=== PATIENT | male | born 1950 | race Caucasian/White ===

== ENCOUNTER → 2024-04-07 09:54 | Outpatient (REF) | payer MEDICARE, OTHER, SELFPAY | LOC: RCS 09:54 | PROVIDERS: ATTENDING PHYSICIAN Internal Medicine; FAMILY PHYSICIAN Student in an Organized Health Care Education/Training Program | DX: I34.1 Nonrheumatic mitral (valve) prolapse (principal) | CPT/HCPCS: 93306 ==

== ENCOUNTER 2024-06-11 21:12 | Emergency (ER) | payer MEDICARE, OTHER, SELFPAY ==
[2024-06-11 21:22] VITALS: BP 124/96
--- NOTE | 2024-06-11 22:05 | ED.MUSCINJ ---
HPI-Injury
<MARVIN العلي (Lenka) - Last Filed: 06/11/24 23:48>
General
Chief Complaint: Musculo-Skeletal Complaint
Source: patient
Exam Limitations: none
Time Seen by Provider: 06/11/24 22:03
Nursing documentation reviewed up to this point in time: agreed with
History of Present Illness-Injury
Is this injury a work related problem?: No
Is pt an associate of [facility]?: No
Initial Injury comments:
Pt is a 73 yo male with PMHx of R knee arthroscopy (), R hip replacement, and HTN/HLD who presents to the ED with R knee swelling x 4 hours. This evening pt developed sudden onset R knee swelling that extends up to his R mid-thigh. He denies
inciting injury, but does note that he kneeled down on the ground to put away a baking sheet under the oven. He denies falling to the ground, hitting his knee, or any sort of injury to the R knee at this time. He took allieve at 1900 with minimal
relief. There is severe pain with movement of the knee, especially knee flexion. He is able to weight bear, but it causes him severe pain. Denies pain in the R ankle or R hip. Denies being active recently, states he is sedentary and works from home,
but used to be an avid runner and cyclist. Denies fever, chills, RUIZ, URI sx, chest pain, dyspnea, back pain, changes with urination, numbness or tingling.
Denies any daily medications.
Denies hx of arthritis, knee complications post-surgically, gout, CPPD.
Past History
<MARVIN العلي (Lenka) - Last Filed: 06/11/24 23:48>
Past History
ED Past Medical History: HTN, Hypercholesterolemia and Psychiatric (depression)
ED Past Surgical History: Orthopedic
Social History
Tobacco: Non-smoker
Alcohol: Occasional
Drug: None
Personal:
Living: with family
Employment: Employed
Musculoskeletal Injury Exam
<ST العلي (Lenka)[place] - Last Filed: 06/11/24 23:48>
Musculoskeletal Injury Exam
Right Knee:
Pain with Movement?: Severe
Tender to palpation?: Mild
Soft tissue swelling?: Moderate
External deformity and angulation?: None
Joint effusion?: Moderate
Contusion?: Moderate
Hematoma-local bleeding into tissue?: Mild
Strain- Sprain- Tear (Connective tissue injury)?: None
Crepitus with movement?: No
Joint instability?: No
Malalignment/deformity?: No
Range of motion: Limited
Distal skin color and temperature: normal-warm & good color
Capillary Refill: normal
Normal distal neurovascular exam?: Yes
Peripheral Pulses: posterior tibial (right): 2+ and dorsalis pedis (right): 2+
Phy Exam
<ST العلي (Lenka)[place] - Last Filed: 06/11/24 23:48>
General Physical Exam
General Presentation: well appearing and no apparent distress
General age: appears younger than age
General Skin: warm and cool (R knee)
General Habitus: normal
General Mental: alert
General Hydration: appears well hydrated
Cardiovascular Exam
Cardiovascular Exam: normal peripheral pulses
Pulmonary Exam
Pulmonary Exam: no respiratory distress
Neurological Exam
Neurological Exam: alert, oriented x3 and speech normal
Musculoskeletal Exam
Musculoskeletal Exam: joint swelling (R knee, to R mid thigh, not circumferential. some mottling to anterior R knee, [id number] effusion posteriorly. cool to touch) and neuro vasc intact (R distal lower extremity intact)
Injury Course
<Nicci Tang (Lenka) [facility] - Last Filed: 06/11/24 23:48>
Orders/Labs/Results
Orders:
Orders
06/11/24 21:24
Knee, Right 4 or More Views [CR Knee- Right 4 Or More View*] Urgent
Comment:
Reason For Exam: pain, swelling
06/11/24 22:54
Ibuprofen [Motrin] 600 mg PO NOW STA
Oxycodone/Acetaminophen [Percocet 5/325] 1 tablet PO NOW STA
06/11/24 23:55
Raghu Wrap Right-Treatment ONCE
Knee Immobilizer Right-Treatme ONCE
06/12/24 00:12
Cardiac Monitoring- Treatment ONCE
0.9% Sodium Chloride 1000 ml [Nss] 1,000 ml IV BOLUS
06/12/24 00:13
Electrocardiogram (*1) Urgent
Reason for Study: Syncope
EKG- Treatment ONCE
06/12/24 00:17
Alcohol Urgent
Complete Blood Count/With Diff Urgent
Comprehensive Metabolic Panel Urgent
06/12/24 00:40
Add On- LAB Urgent
Tests Added?: ETOH
06/12/24 01:59
Orthostatic VS- Treatment ONCE
06/12/24 02:14
Ondansetron Injectable [Zofran] 4 mg .ROUTE .STK-MED ONE
06/12/24 02:15
Ondansetron Injectable [Zofran] 4 mg IV NOW STA
06/12/24 04:50
0.9% Sodium Chloride 1000 ml [Nss] 1,000 ml IV BOLUS
06/12/24 05:26
Orthostatic VS- Treatment ONCE
06/12/24 06:36
Walker [Treatment- Walker] ONCE
Lorazepam [Ativan] 0.5 mg PO NOW STA
Physical Therapy Consult [Pt Eval And Treat] Urgent
Treatment: ambulate w walker. Traumatic bursitis R knee
Activity Level: Ambulate
Abnormal Lab Results
06/12/24
00:17
RBC 2.85 L 10^6/uL
(4.70-6.10)
Hgb 10.1 L g/dL
(13.0-18.0)
Hct 27.9 L %
(39.0-52.0)
MCV 97.9 H fL
(80.0-94.0)
MCH 35.4 H pg
(27.0-31.0)
Monocytes % 10.7 H %
(1.7-9.3)
Carbon Dioxide 21 L mmol/L
(22-30)
Glucose 111 H mg/dl
(70-99)
AST 134 H U/L
(17-59)
ALT 61 H U/L
(0-50)
06/12/24 00:17
06/12/24 00:17
<Melissa Rapp, DO - Last Filed: 06/12/24 07:44>
Orders/Labs/Results
Orders:
Orders
06/11/24 21:24
Knee, Right 4 or More Views [CR Knee- Right 4 Or More View*] Urgent
Comment:
Reason For Exam: pain, swelling
06/11/24 22:54
Ibuprofen [Motrin] 600 mg PO NOW STA
Oxycodone/Acetaminophen [Percocet 5/325] 1 tablet PO NOW STA
06/11/24 23:55
Raghu Wrap Right-Treatment ONCE
Knee Immobilizer Right-Treatme ONCE
06/12/24 00:12
Cardiac Monitoring- Treatment ONCE
0.9% Sodium Chloride 1000 ml [Nss] 1,000 ml IV BOLUS
06/12/24 00:13
Electrocardiogram (*1) Urgent
Reason for Study: Syncope
EKG- Treatment ONCE
06/12/24 00:17
Alcohol Urgent
Complete Blood Count/With Diff Urgent
Comprehensive Metabolic Panel Urgent
06/12/24 00:40
Add On- LAB Urgent
Tests Added?: ETOH
06/12/24 01:59
Orthostatic VS- Treatment ONCE
06/12/24 02:14
Ondansetron Injectable [Zofran] 4 mg .ROUTE .STK-MED ONE
06/12/24 02:15
Ondansetron Injectable [Zofran] 4 mg IV NOW STA
06/12/24 04:50
0.9% Sodium Chloride 1000 ml [Nss] 1,000 ml IV BOLUS
06/12/24 05:26
Orthostatic VS- Treatment ONCE
06/12/24 06:36
Walker [Treatment- Walker] ONCE
Lorazepam [Ativan] 0.5 mg PO NOW STA
Physical Therapy Consult [Pt Eval And Treat] Urgent
Treatment: ambulate w walker. Traumatic bursitis R knee
Activity Level: Ambulate
Abnormal Lab Results
06/12/24
00:17
RBC 2.85 L 10^6/uL
(4.70-6.10)
Hgb 10.1 L g/dL
(13.0-18.0)
Hct 27.9 L %
(39.0-52.0)
MCV 97.9 H fL
(80.0-94.0)
MCH 35.4 H pg
(27.0-31.0)
Monocytes % 10.7 H %
(1.7-9.3)
Carbon Dioxide 21 L mmol/L
(22-30)
Glucose 111 H mg/dl
(70-99)
AST 134 H U/L
(17-59)
ALT 61 H U/L
(0-50)
06/12/24 00:17
06/12/24 00:17
<MARVIN العلي (Lenka) - Last Filed: 06/11/24 23:48>
MDM/Problems Addressed
Differential Diagnosis Includes:
DDx: traumatic knee effusion vs gout vs arthritis vs prepatellar bursitis
Pt with sudden onset swelling to L knee this evening, no known trauma to knee aside from kneeling on kitchen floor earlier tonight prior to onset of edema. Pain with weight bearing and walking, pain with knee flexion.
Will obtain knee XR.
<MARVIN العلي (Lenka) - Last Filed: 06/11/24 23:48>
*Critical Care Note
Total Time (30-74mins, 75-104mins- exclusive of procedures): Not Applicable
<Melissa Rapp DO - Last Filed: 06/12/24 07:44>
*Radiology
Radiology exam reviewed: radiology read reviewed
*Pulse Oximetry
Patient hypoxic: no
*EKG
Interpreted by ED Provider?: Yes
Interpretation: abnormal
Comparison EKG: no comparison EKG present
Rate: normal
Rhythm: sinus
Crescent: left axis deviation
Interval: normal interval
QRS Pattern: right bundle branch block
Ischemia: non-specific ST changes
*Adult And Pediatric Neurologist Interpretation
Rate: normal
Interpretation: normal
Rhythm: sinus
<MARVIN العلي (Lenka) - Last Filed: 06/11/24 23:48>
Update Note
Update Note:
KNEE XRAY
IMPRESSION:
Large amount of soft tissue swelling anterior to the patella and patellar tendon as well as extending into the distal thigh. Findings suggest subcutaneous edema and superficial prepatellar bursitis.
No evidence for significant joint effusion radiographically.
Minimal tricompartment degenerative changes.
Electronically signed by Estrada Carl MD, 06/11/2024 10:58 PM
Will plan to manage with knee immobilizer and NSAIDs.
ED Attending Note
<MARVIN العلي (Lenka) - Last Filed: 06/11/24 23:48>
-
Portions of this chart may have been created with voice recognition software.� Occasional wrong word or��sound alike� substitutions may have occurred due to the inherent limitations of voice recognition software.
<Melissa Rapp DO - Last Filed: 06/12/24 07:44>
ED Attending Note
Patient seen and examined by attending physician: Yes
I performed the substantive portion of visit, reviewed & personally made and approve the management plan that is documented in note by myself or CORRIE.: Yes
ED Attending Note:
This is a 73-year-old gentleman who has history of hypertension, hyperlipidemia, anxiety who states tonight shortly after leaning down briefly to place a duval in his oven he developed abrupt significant swelling and pain of his right knee. Other
than this no insightful injury. No fall. No history of similar episodes in the past.
Prior to tonight he had been feeling well.
He has remote history of arthroscopy of that knee perhaps 40 years ago. No history of osteoarthritis nor inflammatory arthritis. He took Aleve approximately 3 hours ago.
He complains of significant swelling globally to his right knee but primarily anterior aspect with swelling that extends to his right anterolateral distal thigh. No calf pain or swelling. No weakness nor numbness.
Patient states he is unable to bear weight due to pain and was brought to the ED by a neighbor.
His daily medications include: Amlodipine, losartan, atorvastatin, Lexapro, trazodone. He takes no anticoagulants including aspirin.
No history of easy bruisability, no history of bleeding disorder.
GENERAL: 73-year-old gentleman appears somewhat younger than stated age, bright and alert, pleasant, appears in no acute distress. Vital signs within normal limits.
EYE: anicteric
NECK: Supple, nontender, no meningismus, no significant adenopathy.
ENT: oral mucosa is moist. No rhinorrhea.
CARDIAC: Regular rate and rhythm. no murmur.
LUNGS: Clear breath sounds bilaterally, no acute respiratory distress, no wheezes/rales/rhonchi
ABDOMEN: Soft, nondistended, without focal tenderness
NEUROLOGICAL: Alert and oriented x3, no focal neuro deficits.
SKIN: Warm and dry, normal color, skin intact. No rash.
MUSCULOSKELETAL: No C/C/E. peripheral pulses are full and equal b/l.
Right knee has significant tense effusion primarily anterior aspect with mild focal mottling of skin anterior knee as well as minimal early ecchymosis of anterior knee. Tense soft tissue swelling extends proximally from the knee to the
anterolateral aspect of the distal thigh. Exquisite tenderness about the knee. Markedly limited flexion to approximately 30 degrees. No crepitus. No gross deformity. No tenderness to the calf nor soft tissue swelling of the calf. Moderate
tenderness to the distal anterolateral thigh but no circumferential soft tissue swelling. No hip tenderness. No pain with dorsiflexion. Distal sensation, strength intact. Peripheral pulses full and equal bilaterally.
PSYCH: Normal and appropriate interaction.
Patient presents with acute effusion right knee appears to be traumatic/bloody effusion. His only potentially insightful injury is bending down and briefly leaning on his knee. Significant soft tissue swelling primarily located anterior knee
extends to the anterolateral distal thigh but nothing to suggest compartment syndrome.
Will check x-ray.
Will plan for bedside ultrasound and could consider arthrocentesis.
Will medicate for pain.
Patient resides at home alone. 1 year ago. He reached out to his neighbor to drive him to the hospital today. He does have some but limited local support.
06/11/2024 2357 PM
X-ray shows prepatellar soft tissue swelling but no evidence of joint effusion. No fracture.
Prepatellar bursitis does not appear inflammatory/infectious in nature but more so traumatic in nature.
Will place an Raghu wrap, knee immobilizer and provide crutches for ambulation.
Recommend elevation, local ice and will add ibuprofen for pain and inflammation.
Will refer to orthopedics for follow-up.
06/12/2024 0010 AM
Update.
Patient attempted to get up, ambulate to find the bathroom and immediately became lightheaded, laid himself on the ground, found by ED staff who then helped the patient up to get back to his bed and upon standing he passed out and vomited.
Now lying supine, moderate pallor, minimal diaphoresis but promptly improving once repositioned to supine.
He remains bright and alert, easily communicative, jovial. No focal neurodeficits.
Systolic blood pressure 90.
I suspect vasovagal episode.
Less likely acute blood loss anemia related to traumatic prepatellar bursitis, other consideration is acute arrhythmia.
Will check labs, EKG, cardiac cath technologist, initiate IV fluid bolus.
06/12/2024 04:50 AM
Patient sleeps when undisturbed, continues to appear comfortable.
Labs show mild anemia with hemoglobin of 10.1. normal platelet count. No old results to compare.
Chemistries are remarkable for mildly elevated LFTs, elevated alcohol level of 215.
After 1 L of IV fluids, orthostatic vital signs are mildly positive and patient notes onset of nausea with standing. No syncope no recurrent vomiting.
Will continue IV fluids and plan to repeat orthostatics.
There is been no further swelling of right knee.
Concern for orthostatic hypotension related to acute alcohol intoxication, other considerations acute blood loss anemia with orthostasis however less likely as traumatic effusion limited to prepatellar space.
06/12/2024 06:30AM
After additional IV fluids, no further orthostasis.
Patient is somewhat tremulous and admits moderate daily alcohol consumption, drinking half a bottle of hard liquor on a daily basis. He also admits to moderate shaking generally first thing in the morning and moderate shaking when he attempts to
cut down his alcohol use. No prior history of seizures, no previous inpatient alcohol rehab.
He is able to bear weight with knee immobilizer in place on right leg and admits that knee is feeling markedly improved.
Will plan for physical therapy evaluation this morning to evaluate patient's steadiness with use of a walker.
He is chronically maintained on Ativan 0.5 mg once daily. Will give a dose now.
If patient is too unsteady on his feet with use of a walker, if deemed unsafe to return home especially as he lives alone will then require acute hospitalization for acute ambulatory dysfunction/alcohol withdrawal.
Discharge Plan
Departure
Patient with high blood pressure during this ER visit?: No
Condition: Good
Discharge Problem:
acute prepatellar bursitis, Traumatic bursitis, Chronic alcohol dependence, continuous, Orthostatic hypotension
Instructions: Knee Immobilizer (DC), Prepatellar Bursitis (DC), Alcohol Use Disorder (DC), How to use a walker
Prescriptions:
New
celecoxib [Celebrex] 200 mg capsule
200 mg PO BID PRN (Reason: Pain) Qty: 20 0RF
Discontinued
polymyxin B sulf-trimethoprim [Polytrim] 10 ML drops
2 drp OPHTHALMIC QID Qty: 10 0RF
Rx Instructions:
apply 2 drops to each eye qid for 7 days
Referrals:
[place], [Family Provider] -
Alex Real MD [Active] - Follow up in 2-3 days
Interventions
Interventions:
ED-Musculoskeletal Assessment Last Done: 06/11/24 22:25
Discharge Date and Time
Print Language: [id number]
[2024-06-11] MEDS: PERCOCET 5/325 1 TABLET PO (23:01)
[2024-06-11] MEDS: MOTRIN 600 MG PO (23:02)
[2024-06-12] VITALS (54 sets, daily range): BP systolic 70–179; BP diastolic 53–128; PULSE 81–115
[2024-06-12] MEDS: NSS 1000 IV ×2 (00:18→05:06)
[2024-06-12 00:31] LABS: % Basophils 0.9 % (0-2); % Immature Granulocytes 0.5 % (0-0.5); % Lymphocytes 31.9 % (20.5-51.1); % Monocytes 10.7 % (1.7-9.3); Absolute Basophils 0.1 10^3/uL (0-0.2); Absolute Eosinophils 0.1 10^3/uL (0-0.7); Absolute Lymphocytes 1.8 10^3/uL (1.2-3.4); Absolute Monocytes 0.6 10^3/uL (0.1-0.6); Absolute Neutrophils 3.2 10^3/uL (1.4-6.5); Hematocrit 27.9 % (39.0-52.0); Hemoglobin 10.1 g/dL (13.0-18.0); Mean Corp Hgb Conc. 36.2 g/dL (33.0-37.0); Mean Corpuscular Hgb 35.4 pg (27.0-31.0); Mean Corpuscular Volume 97.9 fL (80.0-94.0); Mean Platelet Volume 8.6 fL (7.4-10.4); Nucleated Red Blood Cells % 0 % (-); Platelet Count 185 10^3/uL (130-400); Red Blood Cell Count 2.85 10^6/uL (4.70-6.10); Red Cell Dist. Width 13.2 % (11.5-14.5); White Blood Cell Count 5.8 10^3/uL (4.8-10.8)
[2024-06-12 00:54] LABS: ALT (SGPT) 61 U/L (0-50); AST (SGOT) 134 U/L (17-59); Albumin 4.3 g/dl (3.5-5.0); Alkaline Phosphatase 77 U/L (38-126); Blood Urea Nitrogen 12 mg/dl (9-20); Carbon Dioxide 21 mmol/L (22-30); Chloride 102 mmol/L (98-107); Glucose 111 mg/dl (70-99); Potassium 4.7 mmol/L (3.5-5.1); Sodium 139 mmol/L (135-145); Total Bilirubin 1.2 mg/dl (0.2-1.3); Total Protein 6.9 g/dl (6.3-8.2); eGFR > 60.00
[2024-06-12 01:05] LABS: Alcohol 215 mg/dl
[2024-06-12] MEDS: ZOFRAN 4 MG IV (02:15)
[2024-06-12] MEDS: ATIVAN 0.5 MG PO (07:10)
[2024-06-12] MEDS: ATIVAN 1 MG PO (11:43)
== END 2024-06-12 11:40 | disposition home or self-care (01) ==
LOC: EMR 21:12
PROVIDERS: EMERGENCY PHYSICIAN Emergency Medicine; FAMILY PHYSICIAN Student in an Organized Health Care Education/Training Program
DX: M70.41 Prepatellar bursitis, right knee (principal); I95.1 Orthostatic hypotension; X58.XXXA Exposure to other specified factors, initial encounter; F10.20 Alcohol dependence, uncomplicated; I10 Essential (primary) hypertension; E78.00 Pure hypercholesterolemia, unspecified
CPT/HCPCS: 99285; 96374; 29505; 96361 ×3; 73564; 80053; 82077; 85025; 93005